=== PATIENT | male | born 1935 | race Hispanic/Latino ===

== ENCOUNTER 2019-07-27 08:22 | Outpatient (CLI) | payer MEDICARE ==
[2019-07-27 13:43] LABS: #Basophils 0.1 thou/uL (0.0-0.2); #Eosinphils 0.1 thou/uL (0.0-0.7); #Lymphocytes 1.6 thou/uL (1.20-3.40); #Monocytes 0.6 thou/uL (0.11-0.59); #Neutrophils 3.7 thou/uL (1.40-6.50); %Eosinophils 2.3 % (0.0-10.0); %Lymphocytes 26.1 % (21.0-51.0); %Monocytes 9.2 % (0.0-10.0); %Neutrophils 60.4 % (42.0-75.0); Hemoglobin 16.6 g/dL (14.0-18.0); Mean Corpuscular Hemoglobin 31.1 pg (27.0-31.0); Mean Corpuscular Volume 91.6 fL (78.0-98.0); Mean Platelet Volume 8.1 fL (7.4-10.4); Platelet Count 222 thou/uL (130-400); RBC Distribution Width 12.4 % (11.5-14.5); Red Blood Cell (RBC) Count 5.34 mill/uL (4.70-6.10); White Blood Cell (WBC) Count 6.2 thou/uL (4.8-10.8)
[2019-07-27 13:45] LABS: Bacteria/HPF None Seen HPF (None Seen); Bilirubin Negative (Negative); Blood, Urine Negative (Negative); Clarity Clear (Clear); Glucose, Urine (Dipstick) Normal (Negative); Leukocyte Negative Leu/uL (Negative); Nitrite Negative (Negative); Protein, Urine (Dipstick) Negative (Neg-Trace); RBC/HPF 0-3 HPF (0-3); Squamous Epithelial None Seen HPF (0-3); Urobilinogen Normal mg/dL (Less than 2); WBC/HPF 0-3 HPF (0-3)
[2019-07-27 13:49] LABS: INR-International Normal Ratio 1.2; Prothrombin Time 15.3 SEC (12.0-14.7)
[2019-07-27 14:08] LABS: Anion Gap 10 mmol/L (10-20); BUN (Urea Nitrogen) 19 mg/dL (8.4-25.7); Calc. Creatinine Clearance 0 mL/min (70-130); Calcium 9.5 mg/dL (7.8-10.44); Carbon Dioxide 30 mmol/L (23-31); Chloride 101 mmol/L (98-107); Estimated GFR-MDRD 68; Glucose 82 mg/dL (83-110); Potassium 4.1 mmol/L (3.5-5.1); Sodium 137 mmol/L (136-145)
== END 2019-07-27 08:23 | disposition home or self-care (01) ==
LOC: LABBT 08:22
PROVIDERS: ATTEND Orthopaedic Surgery
DX: Z01.818 Encounter for other preprocedural examination (principal); M16.12 Unilateral primary osteoarthritis, left hip
CPT/HCPCS: 80048; 81001; 85025; 85610; 87081; 93005; 93010

== ENCOUNTER 2019-07-27 14:00 | Inpatient (IN) | payer MEDICARE, OTHER ==
[2019-07-27 12:24] VITALS: BMI 33.4
[2019-08-08] MEDS ORDERED: Tranexamic Acid 1,000 MG/10 ML VIAL ONE (09:22)
[2019-08-08] MEDS ORDERED: Sodium Chloride 0.9% 100 ML ONE (09:22)
[2019-08-08] MEDS ORDERED: Promethazine HCl 25 MG/ML VIAL IM PRN ×3 (09:31→12:14)
[2019-08-08] MEDS ORDERED: Zolpidem Tartrate 5 MG TAB PO PRN ×2 (09:31→11:15)
[2019-08-08] MEDS ORDERED: diphenhydrAMINE 25 MG CAP PO PRN ×2 (09:31→11:15)
[2019-08-08] MEDS ORDERED: Fentanyl 100 MCG/2 ML VIAL SLOW IVP PRN ×2 (09:31)
[2019-08-08] MEDS ORDERED: Acetaminophen 325 MG TAB PO PRN (09:31)
[2019-08-08] MEDS ORDERED: HYDROcodone/Acetaminophen 10/325 mg Tablet PO PRN ×2 (09:31)
[2019-08-08] MEDS ORDERED: traMADol HCl 50 MG TAB PO PRN ×3 (09:31→11:15)
[2019-08-08] MEDS ORDERED: Vancomycin HCl 1.5 GM in Sodium Chloride 0.9% 250 ML 300 ML IVPB SCH (09:45)
[2019-08-08] MEDS ORDERED: Midazolam HCl 2 mg/2 ml Vial ONE (09:59)
[2019-08-08] MEDS ORDERED: Lidocaine 1% (PF) 30 ML VIAL ONE (09:59)
[2019-08-08] MEDS ORDERED: Fentanyl 100 MCG/2 ML VIAL ONE ×2 (09:59→12:18)
[2019-08-08] MEDS ORDERED: Lidocaine 1.5% w/Epi 1:200K 30 ML VIAL (Epid Use) ONE (11:14)
[2019-08-08] MEDS ORDERED: Bupivacaine 0.25% 10 ML VIAL EPIDURAL PRN (11:15)
[2019-08-08] MEDS ORDERED: Promethazine HCl 25 MG SUPP PR PRN (11:15)
[2019-08-08] MEDS ORDERED: Naloxone HCl 0.4 mg/ml Vial IV PRN (11:15)
[2019-08-08] MEDS ORDERED: Fentanyl 5 mcg/Bup 0.075% Cadd 100 ML EPIDURAL SCH (11:15)
[2019-08-08] MEDS ORDERED: diphenhydrAMINE 50 MG/ML VIAL IM PRN (11:15)
[2019-08-08] MEDS ORDERED: Hydrocerin (Eucerin) Cream 120 gm Jar TOP PRN (11:15)
[2019-08-08] MEDS ORDERED: diphenhydrAMINE 50 MG/ML VIAL IVP PRN (11:15)
[2019-08-08] MEDS ORDERED: Naloxone HCl 0.4 mg/ml Vial IVP PRN (11:15)
[2019-08-08] MEDS ORDERED: Ondansetron PF 4 MG/2 ML Vial IVP PRN (11:15)
[2019-08-08] MEDS ORDERED: HYDROcodone/Acetaminophen 5/325 mg Tablet PO PRN ×2 (11:15)
[2019-08-08] MEDS ORDERED: Promethazine HCl 25 MG/ML VIAL SLOW IVP PRN (12:14)
[2019-08-08] MEDS ORDERED: Ondansetron HCl/PF 4 MG/2 ML Vial IVP PRN (12:14)
--- NOTE | 2019-08-08 13:51 | OP ---
DATE OF PROCEDURE: 08/08/2019 PREOPERATIVE DIAGNOSIS: End-stage bicompartmental osteoarthritis, left hip. POSTOPERATIVE DIAGNOSIS: End-stage bicompartmental osteoarthritis, left hip. OPERATIVE PROCEDURE: Press-fit left total hip arthroplasty. MOTORS ASSEMBLER: Yuriy Goetz PA-C ANESTHESIA: General via endotracheal tube augmented with indwelling thoracic epidural. COMPONENT USED: [facility] Accolade II press-fit size 7 hip stem with a 54 mm Tritanium hemispherical cluster acetabular shell, 36 mm 10 degree polyethylene fixed bearing insert and a neutral offset 36 mm V40 metallic femoral head. FINDINGS: End-stage severe degenerative bicompartmental disease, [id number] arthrosis, periarticular osteophyte formation, large serous effusion, hypertrophic synovium, and changes consistent with bicompartmental osteoarthritis. DRAINS: None. SPECIMENS: None. COMPLICATIONS: None. INPUT: 1 L of crystalloid. OUTPUT: 250 mL clear yellow urine. ESTIMATED BLOOD LOSS: 250 mL. INDICATION FOR SURGERY: Kam is an 83-year-old male, who has had progressive left hip, groin, and thigh pain and problem with standing and walking for last five to seven years. He has failed conservative management and elected to proceed with total hip arthroplasty as definitive treatment of his pain. PROCEDURE IN DETAIL: After informed consent was obtained in the preoperative holding area, the patient was taken to the operative suite where general anesthesia was induced. The patient was then positioned in the lateral decubitus position. The hip was then prepped and draped in usual sterile fashion. The patient received preoperative antibiotics. Prior to incision, time-out was called and all members of the surgical team agreed upon site, surgeon, and patient. After this, a longitudinal incision was made directly over the trochanter, noted by palpation extending 2 fingerbreadths above and below the trochanter. The deeper subcutaneous layer was undermined with Bovie electrocautery. The iliotibial band was encountered and incised sharply and the plane below this was developed bluntly. A Charnley retractor was placed to hold this opened. The lateral aspect of the trochanter and the abductor muscles were encountered and then reflected anteriorly off the trochanter using Bovie electrocautery. Once this was completed, the anterior capsule was then encountered and identified and copious capsulotomy was carried out, exposing the femoral neck and head. Dislocation maneuver was then performed and an in situ provisional neck cut was then made using the oscillating saw. Attention was then turned to acetabular preparation and sequential reaming was carried out up to the appropriate diameter. A trial was then malleted into place with good firm resistance and no pullout. The permanent acetabular shell was then malleted squarely into place, as was the appropriate liner. Once completed, the wound was copiously irrigated and attention was then turned to femoral preparation. Flexion and external rotation were performed of the exposed thigh and femoral elevators were then placed at the proximal aspect of the wound. Canal finder was used to establish the length of the canal and sequential reaming was carried out, followed by broaching. Once the appropriate stability was established with the trial broaches with flexion, extension and rotational stability, we did trial with neutral and 2 mm offset incremental necks. Once the appropriate size was decided upon, with good stability noted with flexion, extension, internal and external rotation and shuck being negative, we removed the femoral trial broach and malleted into place the permanent prosthesis with good firm fit, which was also stable to rotation. Again, the hip felt very stable to flexion, extension, internal and external rotation. Leg lengths appeared near anatomic clinically and we were quite happy with prosthesis placement. Copious irrigation was then carried out through the entirety of the wound. Primary closure of the abductors was accomplished with interrupted #2 Vicryl [id number] stitches and the IT band was then closed with interrupted #2 Vicryl, oversewn with a #2 running barbed Quill stitch. Subcutaneous fascia was closed with running barbed Quill stitch and a subcuticular Monocryl barbed Quill stitch was used for skin closure and augmented with skin cement. A sterile dressing was applied. The procedure was terminated without any complication. All counts were correct. The patient was awakened in the operative suite and taken to the recovery room in stable condition. Job ID: [id number]
[2019-08-08] MEDS ORDERED: Glycopyrrolate 0.2 MG/ML 5 ML SYRINGE ONE (13:58)
[2019-08-08] MEDS ORDERED: ePHEDrine 50 MG/ML VIAL ONE (13:58)
[2019-08-08] MEDS ORDERED: Lidocaine 1% PF 5 ML VIAL ONE (13:58)
[2019-08-08] MEDS ORDERED: PHENYLEPHRINE-NS 100 MCG/ML 10 ML SYRINGE ONE (13:58)
[2019-08-08] MEDS ORDERED: Rocuronium Bromide 10 MG/ML (10ML VIAL) ONE (13:58)
[2019-08-08] MEDS ORDERED: Ondansetron PF 4 MG/2 ML Vial ONE (13:58)
[2019-08-08] MEDS ORDERED: PROPOFOL 200 MG/20 ML VIAL ONE (13:58)
--- NOTE | 2019-08-08 14:13 | RAD ---
EXAM: XR Hip Lt 2-3 View PROVIDED CLINICAL HISTORY: Postop COMPARISON: None FINDINGS: Postoperative changes of left total hip arthroplasty are demonstrated. Associated soft tissue gas. IMPRESSION: As above.
[2019-08-08] MEDS ORDERED: CEFAZOLIN 2 GM in Premix Bag 1 BAG IVPB SCH (17:00)
[2019-08-08] MEDS: Ketorolac Tromethamine 30 MG/ML VIAL IVP SCH ×5 (19:44→22:17)
[2019-08-08] MEDS: Sodium Chloride 0.9% 1,000 ML IV SCH ×2 (19:45→21:07)
[2019-08-08] MEDS: CEFAZOLIN 2 GM in Premix Bag 1 BAG IVPB SCH (21:07)
[2019-08-08] MEDS: Ondansetron PF 4 MG/2 ML Vial IVP PRN (21:07)
[2019-08-08] MEDS: Ferrous Gluconate 324 MG TAB PO SCH (21:09)
[2019-08-08] MEDS: Atorvastatin Calcium 40 MG TAB PO SCH (21:09)
[2019-08-08] MEDS: Senokot S 8.6-50 MG TAB PO SCH (21:09)
[2019-08-08] MEDS: Aspirin 81 mg Enteric Coated Tablet PO SCH (21:10)
[2019-08-08] MEDS: Carvedilol 6.25 MG TAB PO SCH (21:10)
[2019-08-09] MEDS: CEFAZOLIN 2 GM in Premix Bag 1 BAG IVPB SCH (04:23)
[2019-08-09] MEDS: Ketorolac Tromethamine 30 MG/ML VIAL IVP SCH ×5 (05:02→23:30)
[2019-08-09] MEDS: Sodium Chloride 0.9% 1,000 ML IV SCH ×4 (05:02→23:34)
[2019-08-09] MEDS: Ondansetron PF 4 MG/2 ML Vial IVP PRN (06:11)
[2019-08-09 06:23] LABS: Hemoglobin 15.5 g/dL (14.0-18.0); Mean Corpuscular HGB CONC 34.6 g/dL (32.0-36.0); Mean Corpuscular Hemoglobin 31.7 pg (27.0-31.0); Mean Corpuscular Volume 91.7 fL (78.0-98.0); Mean Platelet Volume 8.3 fL (7.4-10.4); Platelet Count 180 thou/uL (130-400); RBC Distribution Width 12.5 % (11.5-14.5); White Blood Cell (WBC) Count 8.4 thou/uL (4.8-10.8)
[2019-08-09] MEDS: Aspirin 81 mg Enteric Coated Tablet PO SCH ×2 (09:00→20:38)
[2019-08-09] MEDS ORDERED: Multivit, Therapeutic 1 TAB PO SCH (09:00)
[2019-08-09] MEDS ORDERED: Aspirin 81 mg Enteric Coated Tablet PO SCH (09:00)
[2019-08-09] MEDS: Ferrous Gluconate 324 MG TAB PO SCH ×2 (09:01→20:38)
[2019-08-09] MEDS: Lisinopril 5 MG TAB PO SCH (09:02)
[2019-08-09] MEDS: Furosemide 20 MG TAB PO SCH (09:02)
[2019-08-09] MEDS: Senokot S 8.6-50 MG TAB PO SCH ×2 (09:03→20:39)
[2019-08-09] MEDS: Carvedilol 6.25 MG TAB PO SCH ×2 (09:03→20:39)
[2019-08-09] MEDS: Multivitamin W/ Minerals 1 TAB PO SCH (09:03)
[2019-08-09] MEDS: Bupivacaine 10 ML in Sodium Chloride 0.9% 90 ML EPIDURAL SCH (12:15)
--- NOTE | 2019-08-09 12:38 | PRG ---
DATE OF SERVICE: 08/09/2019 SUBJECTIVE: Kam is an 83-year-old male, who is postop day 1 from a left total hip arthroplasty. He is doing very well. He has no complaints. He is comfortable currently. OBJECTIVE: VITAL SIGNS: Temperature 98.5, pulse 80, respiratory rate 18 and nonlabored, and blood pressure 106/69. GENERAL: He is alert and oriented to person, place, time, situation, responsive, appropriate with examiner. Grossly nonfocal. His incision is clean. No erythema. No strike through. LABORATORY DATA: Hemoglobin and hematocrit 15.5 and 44.9. IMPRESSION: An 83-year-old male, postop day 1, left total hip arthroplasty, doing well. PLAN: Continue current care. Probable discharge home tomorrow. Job ID: [id number]
--- NOTE | 2019-08-09 15:02 | CON ---
DATE OF CONSULTATION: Consultation for postop medical management. HISTORY OF PRESENT ILLNESS: This patient is an 83-year-old male, status post hip replacement. He is doing very well postoperatively, although he does report having some nausea today. He relates this to anesthesia and states that even today, he is having some difficulty even trying to keep down the water. Otherwise, he is ready to get up and moving with therapy. PAST MEDICAL HISTORY: Notable for minimal coronary artery disease, atrial fibrillation, history of V-tach, hypertension, hyperlipidemia, and prostate cancer. PAST SURGICAL HISTORY: Pacemaker defibrillator placement, carpal tunnel release, elbow surgery, knee surgery with replacement, prostate surgery, and appendectomy. SOCIAL HISTORY: Nonsmoker, nondrinker, nondrug user. FAMILY HISTORY: Father had a CVA. HOME MEDICATIONS: 1. Multivitamin one p.o. daily. 2. Lisinopril 5 mg daily. 3. Lasix two p.o. daily. 4. Fish oil 1200 daily. 5. Carvedilol b.i.d. 6. Atorvastatin 40 at bedtime. 7. Aspirin 81 mg daily. 8. Eliquis 5 mg b.i.d. PHYSICAL EXAMINATION: VITAL SIGNS: Temperature 98.5, pulse 80, respirations 18, O2 saturations 93% on room air, and blood pressure is 106/69. GENERAL APPEARANCE: Age-appropriate male, in no distress. He is awake, alert, oriented, pleasant, and cooperative. HEART: Regular rate and rhythm without murmurs, gallops, or rubs. LUNGS: Clear to auscultation bilaterally with no wheezes or rales. ABDOMEN: Soft, nontender, and nondistended. Positive bowel sounds. EXTREMITIES: No cyanosis, clubbing, or edema. Good peripheral pulses. IMAGING DATA: EKG showed paced rhythm. IMPRESSION AND PLAN: 1. Postoperative hip replacement per Ortho. 2. Nausea. The patient has Phenergan available as well as other p.r.n.'s. 3. History of coronary artery disease. Continue with the patient's home regimen of aspirin and carvedilol. 4. Atrial fibrillation. The patient will need to get back on his Eliquis as soon as reasonably possible from a surgical perspective, discussed with Yuriy Goetz PA-C. 5. History of cardiomyopathy with some subsequent improvement of his ejection fraction to the 50% range. Continue with carvedilol and lisinopril. 6. Hyperlipidemia. Continue atorvastatin. Job ID: [id number]
[2019-08-09] MEDS: Atorvastatin Calcium 40 MG TAB PO SCH (20:38)
[2019-08-10 03:19] VITALS: TEMP 98.5
[2019-08-10] MEDS: Bupivacaine 10 ML in Sodium Chloride 0.9% 90 ML EPIDURAL SCH (03:57)
[2019-08-10] MEDS: Ketorolac Tromethamine 30 MG/ML VIAL IVP SCH (05:08)
[2019-08-10 05:10] LABS: Hemoglobin 13.9 g/dL (14.0-18.0); Mean Corpuscular HGB CONC 34.1 g/dL (32.0-36.0); Mean Corpuscular Hemoglobin 30.7 pg (27.0-31.0); Mean Corpuscular Volume 90.1 fL (78.0-98.0); Mean Platelet Volume 8.3 fL (7.4-10.4); Platelet Count 147 thou/uL (130-400); RBC Distribution Width 12.5 % (11.5-14.5); Red Blood Cell (RBC) Count 4.53 mill/uL (4.70-6.10); White Blood Cell (WBC) Count 9.7 thou/uL (4.8-10.8)
--- NOTE | 2019-08-10 07:50 | PDOC.HOSPP ---
- Subjective Encounter Date: 08/10/19 Encounter Time: 07:48 Subjective: Pain 2/10 surgical site, no CP/SOB, cummins in place, nausea improved - Objective Vital Signs & Weight: Vital Signs (12 hours) Temp Pulse Resp BP BP Pulse Ox 08/10/19 03:16 98.5 F 77 16 125/75 93 L 08/09/19 23:03 98.3 F 85 16 121/70 94 L 08/09/19 20:39 101/55 L Weight Admit Weight 220 lb Weight 220 lb I&O: 08/09/19 08/10/19 08/11/19 06:59 06:59 06:59 Intake Total 1400 1450 Output Total 425 400 Balance 975 1050 Result Diagrams: 08/10/19 04:27 Hospitalist ROS - Medication Medications: Active Medications Generic Name Dose Route Start Last Admin Trade Name Freq PRN Reason Stop Dose Admin Aspirin 81 mg 08/08/19 21:00 08/09/19 20:38 Ecotrin PO 81 mg BID SEDRICK Administration Atorvastatin Calcium 40 mg 08/08/19 21:00 08/09/19 20:38 Lipitor PO 40 mg HS SEDRICK Administration Carvedilol 6.25 mg 08/08/19 21:00 08/09/19 20:39 Coreg PO Not Given BID SEDRICK Emollient Cream 0 gm 08/08/19 11:15 08/08/19 21:08 Hydrocerin Cream TOP 1 applic PRN PRN Administration Itching Ferrous Gluconate 324 mg 08/08/19 21:00 08/09/19 20:38 Fergon PO 324 mg BID SEDRICK Administration Furosemide 20 mg 08/09/19 09:00 08/09/19 09:02 Lasix PO 20 mg DAILY SEDRICK Administration Sodium Chloride 1,000 mls @ 100 mls/hr 08/08/19 09:45 08/09/19 23:34 Normal Saline 0.9% IV 1,000 mls .Q10H SEDRICK Administration Bupivacaine HCl 10 ml/ Sodium 100 mls @ 6 mls/hr 08/09/19 11:00 08/10/19 03: 57 Chloride EPIDURAL 100 mls INF SEDRICK Administration Iron/Minerals/Multivitamins 1 tab 08/09/19 09:00 08/09/19 09:03 Theragran M PO 1 tab DAILY SEDRICK Administration Lisinopril 5 mg 08/09/19 09:00 08/09/19 09:02 Zestril PO 5 mg DAILY SEDRICK Administration Ondansetron HCl 4 mg 08/08/19 11:15 08/09/19 11:58 Zofran IVP 4 mg Q6H PRN Administration Nausea/Vomiting Senna/Docusate Sodium 2 tab 08/08/19 21:00 08/09/19 20:39 Senokot S PO 2 tab BID SEDRICK Administration - Exam General Appearance: NAD Eye: PERRL ENT: normocephalic atraumatic Neck: supple, no JVD Heart: RRR Respiratory: CTAB, no rales Gastrointestinal: soft, non-tender Extremities - other findings: minimal edema left hip Skin: no rashes Neurological: no focal deficits Musculoskeletal: normal strength, no muscle wasting Psychiatric: normal affect, A&O x 3 Hosp A/P (1) Postoperative nausea Code(s): R11.0 - NAUSEA; Z98.890 - OTHER SPECIFIED POSTPROCEDURAL STATES Status: Acute (2) Postoperative pain Code(s): G89.18 - OTHER ACUTE POSTPROCEDURAL PAIN Status: Acute (3) PAF (paroxysmal atrial fibrillation) Code(s): I48.0 - PAROXYSMAL ATRIAL FIBRILLATION Status: Acute (4) CAD (coronary artery disease) Code(s): I25.10 - ATHSCL HEART DISEASE OF [place] CORONARY ARTERY W/O ANG PCTRS Status: Acute - Plan Cards - resume home Eliquis/ASA/coreg Discontinue cummins Nausea - much improved, tolerating diet Pain - tolerable on oral agents PT/OT From IM standpoint stable to transition home after successful voiding trial
[2019-08-10] MEDS: Aspirin 81 mg Enteric Coated Tablet PO SCH (09:15)
[2019-08-10] MEDS: Carvedilol 6.25 MG TAB PO SCH (09:16)
[2019-08-10] MEDS: Furosemide 20 MG TAB PO SCH (09:17)
[2019-08-10] MEDS: Multivitamin W/ Minerals 1 TAB PO SCH (09:17)
[2019-08-10] MEDS: Senokot S 8.6-50 MG TAB PO SCH (09:17)
[2019-08-10] MEDS: Lisinopril 5 MG TAB PO SCH (09:18)
[2019-08-10] MEDS: Ferrous Gluconate 324 MG TAB PO SCH (09:18)
[2019-08-10 09:19] VITALS: BP 110/68
[2019-08-10] MEDS: Sodium Chloride 0.9% 1,000 ML IV SCH (11:15)
[2019-08-10] MEDS ORDERED: Acetaminophen 325 MG TAB PO PRN (12:06)
[2019-08-10] MEDS ORDERED: HYDROcodone/Acetaminophen 10/325 mg Tablet PO PRN ×2 (12:07)
== END 2019-08-10 18:51 | disposition home or self-care (01) | DRG 470 ==
LOC: SJJU 08-08 08:45
PROVIDERS: ADMIT Orthopaedic Surgery; ATTEND Orthopaedic Surgery
PROC: 0SRB02A Replacement of Left Hip Joint with Metal on Polyethylene Synthetic Substitute, Uncemented, Open Approach (ICD-10-PCS; principal; 2019-08-08)
DX: M16.12 Unilateral primary osteoarthritis, left hip (principal); I42.9 Cardiomyopathy, unspecified; R11.0 Nausea; G89.18 Other acute postprocedural pain; I25.10 Atherosclerotic heart disease of native coronary artery without angina pectoris; I10 Essential (primary) hypertension; F41.9 Anxiety disorder, unspecified; E78.5 Hyperlipidemia, unspecified; I48.0 Paroxysmal atrial fibrillation; Z79.01 Long term (current) use of anticoagulants; Z90.49 Acquired absence of other specified parts of digestive tract; Z95.810 Presence of automatic (implantable) cardiac defibrillator
CPT/HCPCS: 36415; 85027; C1776; J0690; J1200; J1885; J2001; J2250; J2405; J2704; J3010; J3370; J3490; J7050

== ENCOUNTER 2021-08-11 16:21 | Emergency (ER) | payer OTHER, MEDICARE | END 2021-08-11 18:35 | disposition home or self-care (01) | LOC: ERS 16:21 | DX: S01.512A Laceration without foreign body of oral cavity, initial encounter (principal); I10 Essential (primary) hypertension; E78.00 Pure hypercholesterolemia, unspecified; Z79.82 Long term (current) use of aspirin; Z79.01 Long term (current) use of anticoagulants; Z79.899 Other long term (current) drug therapy; W01.0XXA Fall on same level from slipping, tripping and stumbling without subsequent striking against object, initial encounter | CPT/HCPCS: 99282 ==

== ENCOUNTER 2021-08-13 13:51 | Outpatient (CLI) | payer MEDICARE, OTHER | END 2021-08-13 13:52 | disposition home or self-care (01) | LOC: BICRAD 13:51 | PROVIDERS: ATTEND Family Medicine | DX: M25.532 Pain in left wrist (principal) ==

== ENCOUNTER 2024-10-26 07:18 | Outpatient (CLI) | payer MEDICARE | END 2024-10-26 07:19 | disposition home or self-care (01) | LOC: BICCT 07:18 | PROVIDERS: ATTEND Family Medicine | DX: R93.89 Abnormal findings on diagnostic imaging of other specified body structures (principal) | CPT/HCPCS: 36415; 71260; 82565 ==